=== PATIENT | female | born 1995 | race Two or more races ===

== ENCOUNTER 2016-06-08 09:04 | Emergency (ER) | payer SELFPAY ==
[~2016-06-08] VITALS: Ht 175.3 cm; Wt 101.6 kg
[2016-06-08 11:16] VITALS: BP 116/73
[2016-06-08] MEDS ORDERED: cefTRIAXone SOD 1,000 MG VL IM ONE (12:00)
[2016-06-08] MEDS ORDERED: methylPREDNISolone SOD SUCC 125 MG/2 ML VL IM ONE (12:00)
== END 2016-06-08 12:55 | disposition home or self-care (01) ==
LOC: ER 09:04
DX: J03.90 Acute tonsillitis, unspecified (principal); H66.91 Otitis media, unspecified, right ear
CPT/HCPCS: 96372; 99284; J0696; J2930

== ENCOUNTER 2017-01-26 08:19 | Emergency (ER) | payer SELFPAY ==
[~2017-01-26] VITALS: Ht 175.3 cm; Wt 106.3 kg
[2017-01-26] MEDS ORDERED: ACETAMINOPHEN 500 MG TAB PO ONE ×2 (08:20→08:30)
[2017-01-26 08:21] VITALS: BP 126/64
[2017-01-26] MEDS ORDERED: cefTRIAXone SOD 1,000 MG VL IM ONE (09:15)
== END 2017-01-26 09:38 | disposition home or self-care (01) ==
LOC: ER 08:19
DX: J03.90 Acute tonsillitis, unspecified (principal)
CPT/HCPCS: 96372; 99283; J0696